=== PATIENT | female | born 1990 | race Caucasian/White ===

== ENCOUNTER 2023-04-09 07:20 | Outpatient (CLI) | payer BC, SELFPAY ==
--- NOTE | 2023-04-09 08:31 | W.ANESCHARGE ---
Anesthesia Charges Start Date/Time Anesthesia Start Date: 04/09/23 Anesthesia Start Time: 08:00 Stop Date/Time Anesthesia Stop Date: 04/09/23 Anesthesia Stop Time: 08:40
--- NOTE | 2023-04-09 08:41 | W.ANESCHARGE ---
Anesthesia Charges Start Date/Time Anesthesia Start Date: 04/09/23 Anesthesia Start Time: 08:00 Stop Date/Time Anesthesia Stop Date: 04/09/23 Anesthesia Stop Time: 08:40
== END 2023-04-09 07:21 | disposition home or self-care (01) ==
LOC: OP CLINIC 07:24
PROVIDERS: PCP Family Medicine; Visit Provider Internal Medicine Gastroenterology
DX: D50.9 Iron deficiency anemia, unspecified (principal); K63.5 Polyp of colon; K31.89 Other diseases of stomach and duodenum
CPT/HCPCS: 43239; 45385; 813; 88305; J2704